=== PATIENT | male | born 1985 | race African-American/Black ===

== ENCOUNTER 2016-08-20 10:22 | Emergency (ER) | payer OTHER ==
--- NOTE | ~2016-08-20 | CR72 ---
[facility] A Service of [facility] & [facility] RADIOLOGY TEXT RESULTS PATIENT: DERREK DUNN LOCATION: [facility] : 87 UNIT #: [id number] AGE: [address]: Salbador Smith MD SEX: M ORDER DR: [id number] [facility] [address] [facility]. [place], [place] [address] [id number] E MR#: [id number] Acc #: [id number] NAME: DERREK DUNN : 1985 SEX: M STUDY DATE/TIME: 08/20/2016 11:26 UNIT: [facility] ROOM: STUDY DESCRIPTION: CR Chest Single View Portable Attending Physician: Salbador Smith M.D. Ordering Physician: Salbador Smith M.D. MEDICAL IMAGING REPORT This report is preliminary unless electronic signature is present EXAM Portable chest HISTORY Cough. Congestion. Shortness of breath today. COMPARISON STUDIES No comparisons. FINDINGS Lungs are well expanded. No acute appearing infiltrate. The heart size is normal. IMPRESSION No active disease. Dictated by... Colt Becerra M.D. THIS IS AN ELECTRONICALLY VERIFIED REPORT Colt Becerra M.D. at 08/21/2016 10:31 AM CLARKE/clayton TD: 08/20/2016 13:29 JOB #: [id number] MEDICAL IMAGING REPORT Page 1 of 1 COPY
--- NOTE | ~2016-08-20 | CT71 ---
[facility] A Service of [facility] RADIOLOGY TEXT RESULTS PATIENT: DERREK DUNN LOCATION: [facility] : 87 UNIT #: [id number] AGE: [address]: Salbador Smith MD SEX: M ORDER DR: [id number] [address] [address] [id number] E MR#: [id number] Acc #: [id number] NAME: DERREK DUNN. : 1985 SEX: M STUDY DATE/TIME: 08/20/2016 13:02 UNIT: [facility] ROOM: STUDY DESCRIPTION: CT Head Wo Contrast Attending Physician: Salbador Smith M.D. Ordering Physician: Salbador Smith M.D. MEDICAL IMAGING REPORT This report is preliminary unless electronic signature is present EXAM CT head without IV contrast COMPARISON None. INDICATIONS 30-year-old male with altered mental status and seizure today. TECHNIQUE This CT exam was performed with one or more of the following radiation dose reduction techniques: automatic exposure control, adjustment of mA and/or kV according to patient size, and iterative reconstruction. FINDINGS Mastoid air cells, middle ears, visualized paranasal sinuses are well-aerated. No acute fractures or suspicious osseous lesions. Normal cerebral volume. No mass effect or abnormal extraaxial fluid collection. No acute intracranial hemorrhage. No evidence of acute ischemia. IMPRESSION No acute abnormality. Dictated by... Kai Bales M.D. THIS IS AN ELECTRONICALLY VERIFIED REPORT Kai Bales M.D. at 08/25/2016 8:39 PM BLM/pcl TD: 08/20/2016 14:51 JOB #: [id number] [facility] A Service [facility] RADIOLOGY TEXT RESULTS PATIENT: DERREK DUNN LOCATION: [facility] : 87 UNIT #: [id number] AGE: [address]: Salbador Smith MD SEX: M ORDER DR: MEDICAL IMAGING REPORT Page 1 of 1 COPY
[~2016-08-20 10:22] MED LIST: PEPCID PO; PHENERGAN25 M1 PO; PRILOSEC20 MG PO; ZOFRAN ODT4 MG PO
[2016-08-20 11:13] LABS: BASOPHIL% 0.3 % (0-2.5); EOSINOPHIL# 0.1 X10e3 (0-0.7); HEMATOCRIT 41.3 % (38.0-50.0); HEMOGLOBIN 13.5 gm/dL (13.0-16.0); LYMPHOCYTE# 2.1 X10e3 (1.0-3.5); LYMPHOCYTE% 20.8 % (17.0-45.0); MEAN CELL VOLUME 90.5 FL (83-96); MEAN CORPUSCULAR HEMOGLOBIN 29.5 PG (28-34); MEAN CORPUSCULAR HGB CONC 32.6 g/dL (30-36); MEAN PLATELET VOLUME 8.1 FL (6.5-11.5); MONOCYTE# 0.7 X10e3 (0-1.0); NEUTROPHIL# 7.2 X10e3 (1.5-7.1); NEUTROPHIL% 70.9 % (40-75); PLATELET COUNT 198 X10e3 (140-420); RED BLOOD COUNT 4.56 X10e (3.90-5.60); WHITE BLOOD COUNT 10.2 X10e3 (4.0-10.5)
[2016-08-20 11:14] LABS: DIFF IND NO
[2016-08-20 11:43] LABS: CALCIUM SERUM 8.8 mg/dL (8.4-10.2); GLOM FILT RATE Estimated 118.2 mL/min (>60); POTASSIUM 3.3 mmol/L (3.5-5.1)
== END 2016-08-20 14:05 | disposition home or self-care (01) ==
LOC: CED 10:22
PROVIDERS: Emergency Medicine
DX: G40.909 Epilepsy, unspecified, not intractable, without status epilepticus (principal); F17.210 Nicotine dependence, cigarettes, uncomplicated
CPT/HCPCS: 36415; 70450; 71010; 80048; 82947; 85025; 96360; 99285

== ENCOUNTER 2016-08-25 00:10 | Observation (INO) | payer OTHER ==
--- NOTE | ~2016-08-25 | CO ---
Unit #: [id number] #: [id number] Patient: DERREK DUNN [id number] [facility]. [place], [place] [address] [id number] I MR#: [id number] NAME: DERREK DUNN. ROOM: 567 Age: 30 Sex: M Admission Date: 08/25/2016 : 1985 Attending Physician: Rudy Mir M.D. Consultation Date: 08/25/2016 CONSULTATION REPORT REASON FOR CONSULTATION Chest pain. HISTORY OF PRESENT ILLNESS This is a 30-year-old, male who recently told he had a seizure disorder, occasional marijuana use, nicotine abuse, occasionally drinks wine, who came to the emergency room after he had a seizure-like activity, then complained of some chest pain. According to the patient, last , he came into the emergency room here at [facility]. [facility], he had some type of seizure activity. They sent him home and he was supposed to follow up with Dr. Alhaji Jay with Neurology. He states he did not put him on any type of seizure medication. Yesterday, he was sitting in a chair and there was a friend with him who has witnessed that he had a seizure like activity. He does believe he was postictal, but that is not confirmed. The patient then complained to the staff in the ER that he has been having chest pain. He says he has been having it for almost a week. It is in left anterior chest wall that radiates under the left axilla region. He denies any pain up in his neck, bilateral jaws, shoulders, arms, or elbow. He denies any shortness of breath with chest pain. He has occasional palpitations. He has not had no recent cough, fever, or chills. Next, in the emergency room, the patient's blood pressure was 122/83, heart rate 91, respirations 18, temperature 98.7. His initial labs, his cardiac enzymes; troponin less than 0.05 and troponin 0.09 and later less than 0.03. CK was 8009. His D-dimer was 471. He did test positive for amphetamines and marijuana on his urine tox screen. His EKG shows sinus rhythm with left ventricular hypertrophy, short FL, no ischemia. Cardiology has been asked to assist with evaluation and management along with Neurology. PAST MEDICAL HISTORY 1. Seizure disorder recently, but not on medications. 2. Marijuana use. 3. Nicotine abuse. 4. History of spinal meningitis back in 2009. 5. Occasionally drinks wine. 6. Nicotine abuse. 7. No stress or cardiac cath in the past. PAST SURGICAL HISTORY None. HOME MEDICATIONS None. Unit #: [id number] #: [id number] Patient: DERREK DUNN ALLERGIES No known drug allergies. SOCIAL HISTORY The patient lives with his friend. He smokes about less than half a pack of cigarettes a day. He has been smoking for a few years. Drinks occasional wine, but says he is not a heavy drinker. He does use marijuana occasionally. He denies any other illicit drug abuse, even though reported to him that he tested positive for amphetamines on his tox screen. FAMILY HISTORY His mother is living, no problems. His father from lung fibrosis. Siblings are in generally well health. REVIEW OF SYSTEMS See details in HPI. PHYSICAL EXAMINATION GENERAL: Mr. Dunn is a 30-year-old male, in no acute respiratory distress. He is awake, alert, and oriented. VITAL SIGNS: Blood pressure 132/77, heart rate 58, respirations 16. He is afebrile. O2 saturations 99% on room air. NECK: Trachea midline. No thyromegaly or lymphadenopathy. Normal carotid upstrokes. No jugular venous distention. HEART: S1, S2. Regular rate and rhythm. No clicks, murmurs, or rubs. LUNGS: Diminished, otherwise clear. ABDOMEN: Soft and nontender. EXTREMITIES: Pedal pulses are palpable. No pedal edema. DIAGNOSTIC STUDIES LABORATORY RESULTS: Glucose is 81, BUN 11, creatinine 0.6, eGFR is 158.6. Sodium 138, potassium 3.9, chloride 105, CO2 of 25, calcium is 9.1, total protein 6.9, albumin 4.1, bilirubin total 1.9, AST 55, ALT 25, alkaline phosphatase is 65. WBCs are 6.6, hemoglobin 12.2, hematocrit 37.8, platelets is 172. Initial cardiac enzymes; CK-MB is 1.6; troponin less than 0.05. Repeat cardiac enzymes; CK total was 9564, MB is 2.4, percentage of MB 0, and troponin 0.09 and latest cardiac enzymes, CK total is 8009 with MB is 2.3, percentage of MB 0.0, and troponin less than 0.03. INR is 1.2, D-dimer 471. Urine tox screen is positive for amphetamines and marijuana. Urinalysis shows 1+ leukocyte esterase, trace of protein, 1.0 urobilinogen, 25 to 50 wbc's. IMAGING STUDIES: Chest x-ray shows nothing abnormal. CT of the head that was done on 08/20/2016 does not show anything acute. EKG shows normal sinus rhythm with short FL interval. Ventricular rate is 91 beats per minute. Left ventricular hypertrophy, left atrial abnormality, peaked T-waves in especially anterior leads. IMPRESSION 1. Seizure-like activity. 2. Chest pain-atypical. 3. Marijuana abuse. Unit #: [id number] #: [id number] Patient: DERREK DUNN 4. Nicotine abuse. 5. Positive amphetamines on urine tox screen. 6. History of spinal meningitis. PLAN 1. Cardiology consult to assist with evaluation and management of chest pain. Cardiac enzymes; troponin so far has been negative. EKG does not show anything acute. On examination, palpating the area of the chest wall is very tender and sore, most likely musculoskeletal in nature. However, he has never had an ischemic heart disease workup. We will do a Lexiscan Cardiolite stress test to further evaluate. We will not have him walk on the treadmill due to reported seizure activity. 2. Obtain a fasting lipid profile and evaluate. 3. Dr. Becerra with neurology will evaluate the patient and the plans are for an MRI and an EEG. Also, he has been started on IV Keppra. 4. On exam, there are no signs or symptoms of acute congestive heart failure. 5. The patient is on daily dose of Lovenox, Protonix and aspirin. 6. Further recommendations pending per Dr. Trejo. Thank you very much for allowing us to assist in the care. Dictated by... Julio Cesar Grubbs/bibil TD: 08/26/2016 05:25 JOB #: [id number] CC: Oziel Carvalho M.D. CONSULTATION REPORT Page 1 of 1 X Isabel Rome APRN CONSULTATION REPORT
--- NOTE | ~2016-08-25 | CR72 ---
[facility] A Service of [facility] & [facility] RADIOLOGY TEXT RESULTS PATIENT: DERREK DUNN LOCATION: [facility] : 87 UNIT #: [id number] AGE: [address]: Rudy Mir MD SEX: M ORDER DR: [id number] [facility] [address] [facility]. [place], [place] [address] [id number] I MR#: [id number] Acc #: [id number] NAME: DERREK DUNN. : 1985 SEX: M STUDY DATE/TIME: 08/25/2016 00:56 UNIT: CEDOF ROOM: 75203 STUDY DESCRIPTION: CR Chest Single View Portable Attending Physician: Rudy Mir M.D. Ordering Physician: Ed Doctor [id number] [facility] Primary Care Physician: Primary Care Physician No MEDICAL IMAGING REPORT This report is preliminary unless electronic signature is present EXAM Portable chest, 08/25/2016 at 0056 hours INDICATION Left side chest pain today. COMPARISON 08/20/2016 FINDINGS A single AP portable view of the chest shows both lungs to be clear. The heart is normal in size. The mediastinal contour is normal. No significant bone abnormalities are seen. IMPRESSION Normal portable chest. Dictated by... Constantine Morgan Jr., M.D. THIS IS AN ELECTRONICALLY VERIFIED REPORT Constantine Morgan Jr., M.D. at 08/25/2016 9:26 PM VANI/janak TD: 08/25/2016 02:41 JOB #: [id number] MEDICAL IMAGING REPORT Page 1 of 1 COPY
--- NOTE | ~2016-08-25 | EKG ---
PATIENT: DERREK DUNN UNIT #: [id number] Ventricular Rate: 58 BPM Atrial Rate: 58 BPM P-R Interval: 114 ms QRS Duration: 98 ms Q-T Interval: 438 ms QTC Calculation(Bezet): 429 ms Calculated R [place]: 57 degrees Calculated T [place]: 42 degrees Diagnosis Line: Sinus bradycardia Diagnosis Line: Otherwise normal ECG Diagnosis Line: When compared with ECG of 25-AUG-2016 00:15, Diagnosis Line: Vent. rate has decreased BY 33 BPM Diagnosis Line: Confirmed by MARISSA DWYER MD ([id number]) on Diagnosis Line: 08/27/2016 2:59:53 PM INTERPRETING MD: SASCHA
--- NOTE | ~2016-08-25 | EKG ---
PATIENT: DERREK DUNN UNIT #: [id number] Ventricular Rate: 91 BPM Atrial Rate: 91 BPM P-R Interval: 108 ms QRS Duration: 94 ms Q-T Interval: 362 ms QTC Calculation(Bezet): 445 ms P [place]: 75 degrees Calculated R [place]: 66 degrees Calculated T [place]: 56 degrees Diagnosis Line: Sinus rhythm with short IA Diagnosis Line: Otherwise normal ECG Diagnosis Line: No previous ECGs available Diagnosis Line: Confirmed by MARISSA DWYER MD ([id number]) on Diagnosis Line: 08/26/2016 6:38:18 AM INTERPRETING MD: SASCHA
--- NOTE | ~2016-08-25 | MR17 ---
[facility] A Service of [facility] RADIOLOGY TEXT RESULTS PATIENT: DERREK DUNN LOCATION: [facility] 56[facility] : 87 UNIT #: [id number] AGE: [address]: Rudy Mir MD SEX: M ORDER DR: [id number] [facility] [address] [facility]. [place], [place] [address] [id number] MR#: [id number] Acc #: [id number] NAME: DERREK DUNN : 1985 SEX: M STUDY DATE/TIME: 08/25/2016 15:15 UNIT: CEDOF ROOM: 62478 STUDY DESCRIPTION: MR Brain WWo Contrast Attending Physician: Rudy Mir M.D. Ordering Physician: Judah Becerra M.D. Primary Care Physician: No Primary Care Physician MRI CENTER REPORT This report is preliminary unless electronic signature is present. EXAM Brain MRI with and without contrast HISTORY Seizures with tachycardia onset earlier this morning. TECHNIQUE Multiplanar imaging of the brain was performed with and without contrast. 17 mL of MultiHance was used. FINDINGS The diffusion weighted images are normal with no evidence of abnormal restricted diffusion. The routine brain images show no evidence of mass lesion, hemorrhage or edema. Mild increased FLAIR signal is seen adjacent to the atria of the lateral ventricles on both sides. This is a nonspecific finding. In this age group consider demyelinating disease, chronic deep white matter ischemic change or sequela of previous infection, inflammation or trauma. This does not enhance with contrast. The temporal lobes are symmetric. There is no evidence of heterotopic duron matter. After contrast administration no abnormal enhancement is seen. Extraaxial structures are unremarkable. IMPRESSION 1. Mild nonspecific periventricular white matter disease seen on the FLAIR-weighted images bilaterally. It is abnormal in this age group. See above differential diagnosis. 2. Otherwise negative brain MRI. STAT * RESULT Dictated by... [facility] A Service of [facility] RADIOLOGY TEXT RESULTS PATIENT: DERREK DUNN LOCATION: [facility] 567-01 : 87 UNIT #: [id number] AGE: [address]: Rudy Mir MD SEX: M ORDER DR: Constantine Klein M.D. THIS IS AN ELECTRONICALLY VERIFIED REPORT Constantine Klein M.D. at 08/25/2016 6:52 PM ARINA/sina TD: 08/25/2016 16:20 JOB #: [id number] MRI CENTER REPORT Page 1 of 1 COPY
--- NOTE | ~2016-08-25 | ST ---
Unit #: [id number] #: [id number] Patient: DERREK DUNN [id number] [address] [id number] I MR#: [id number] NAME: DERREK DUNN. : 1985 SEX: M STUDY DATE/TIME: 08/25/2016 UNIT: C[facility]OF ROOM: 46082 STUDY DESCRIPTION: Attending Physician: Rudy Mir M.D. Primary Care Physician: No Primary Care Physician CARDIOLOGY REPORT EXAM Lexiscan Cardiolite stress test. FINDINGS Baseline EKG: Sinus bradycardia, heart rate 52 beats per minute, left ventricular hypertrophy, mild left atrial abnormality, short VA interval, elevated T-waves. PROCEDURE Lexiscan is a 4-minute test with Lexiscan being injected within the first minute followed by Cardiolite. EKG during the test was equivocal to baseline. No acute ischemic changes. Patient had occasional premature atrial contraction. Maximum heart rate response was 110 beats per minute with a maximum blood pressure response of 134/83 mmHg. Patient had no complaints of chest pain, palpitations, or dizziness. Had increased shortness of breath and fatigueness which resolved in recovery phase. Cardiolite was injected after Lexiscan within the first minute of the test. Radionuclide tests pending. Please correlate with nuclear images. Dictated by... Julio Cesar Grubbs M.D. CEC/kavon TD: 08/25/2016 15:42 JOB #: [id number] CARDIOLOGY REPORT Page 1 of 1 X Isabel Rome APRN CARDIOLOGY REPORT
--- NOTE | ~2016-08-25 | CO ---
Unit #: [id number] #: [id number] Patient: DERREK DUNN [id number] [facility] [address] [facility]. [place], [place] [address] [id number] I MR#: [id number] NAME: DERREK DUNN. ROOM: 567 Age: 30 Sex: M Admission Date: 08/25/2016 : 1985 Attending Physician: Rudy Mir M.D. Consultation Date: 08/25/2016 CONSULTATION REPORT PRIMARY CARE PHYSICIAN Oziel Carvalho M.D. REASON FOR CONSULTATION Heart racing, small seizures, chest pain. PATIENT IDENTIFICATION This is a 30-year-old right-handed Afro [place] male, who was evaluated in ERT5 at [facility]. SOURCE OF INFORMATION The medical records and my discussion with the ER staff. PROBLEM LIST 1. He was admitted for confusional episode, "small seizures," racing heart over the last several days. 2. Otherwise, he denies any problems. HISTORY OF PRESENT ILLNESS This gentleman was brought in close to the midnight and the reason he was brought in is that apparently he was confused. There was concern about episodic confusion and he says that he has had small seizures for almost 7 to 9 years and he is supposed to see Dr. Jay. He says Dr. Mane and who is Dr. Jay and he says yes. He states he has never been treated. So far from what I could gather, he had a normal CT. His CPK was elevated at 9564. AST was 55. His H and H of 12.2 and 37.8, platelet count was 172. Urine drug screen was positive for amphetamines and marijuana, but he acknowledges smoking, but denies any kind of drugs whatsoever. He acknowledges about one fifth packet of tobacco and does acknowledge some alcohol use. He has not had a seizure of any kind since being here. He denies taking any antiepileptics now or in the past and there is no corroboration of what kind of spells he has. He is mildly confused about the exact date. Otherwise, he is appropriate. PAST MEDICAL HISTORY As discussed above. There is question about "spinal meningitis." PAST SURGICAL HISTORY None. ALLERGIES None known to us. Unit #: [id number] #: [id number] Patient: DERREK DUNN MEDICATIONS None. FAMILY HISTORY No history of epilepsy. SOCIAL HISTORY Apparently, he is a smoker and does drink. He is not working. He got . REVIEW OF SYSTEMS GENERAL: He denies any weight issues, fever, chills, rigor, or sweats. HEENT: No headaches. No double vision, earache, runny nose, or sore throat. CARDIOVASCULAR: No chest pain, clubbing, cyanosis, orthopnea, or palpitation now, but he came with palpitations and chest pain. Cardiology is seeing him. NECK: No neck pain. No neck stiffness. PULMONARY: No shortness of air, cough, or expectoration. ABDOMEN: No nausea, vomiting, diarrhea, or constipation. GENITOURINARY: No genitourinary symptoms. EXTREMITIES: No extremity problems. BACK: No back problems. PSYCHIATRIC: No psychiatric issue. NEUROLOGIC: No neurologic issue. No other hematologic, dermatologic, or endocrine issues. PHYSICAL EXAMINATION VITAL SIGNS: Temperature 97.8, pulse 58, respirations 16, blood pressure 113/59, O2 saturations were 97% to 100%, weight of 179 pounds. BMI was 24. NEUROLOGIC: The patient is awake. Mildly lethargic, but appropriate except for saying this is 18th and when I have to question him and told him it could be further and said it could be 22nd. He agreed he knows this is , 07/2016. He is at [facility]. Cranial nerve examination demonstrates full moore of vision to confrontation. Eye movements are conjugate. Pupils are sluggishly reactive size about 3 mm. No ptosis. No nystagmus. Sensation on the face and scalp are normal. Strength of muscles of facial expression normal. Hearing seemed to be intact. Tongue was midline. I could not visualize uvula or oropharynx. Head turning was spontaneous. No neck stiffness was seen. Motor examination demonstrated normal bulk, tone. Strength was essentially 5-/5 all over. Sensory examination intact for soft touch and pain sensation. No extinction was seen. Romberg was not evaluated. Gait exam was deferred. I could not get any reflexes. Toes are equivocal. DIAGNOSTIC STUDIES LABORATORY RESULTS: Reviewed. IMAGING STUDIES: Reviewed. Unit #: [id number] #: [id number] Patient: DERREK DUNN IMPRESSION Episode of confusion. Labs reviewed. CT reviewed. Question about seizure, question about seizures in the past. He denies any drug use, but also he denies taking any prescription or having cold medications or anything, so it is very strange. Nonetheless, he is reportedly supposed to see Dr. Jay. I will get an MRI of the brain on him. I will put him on Keppra until he sees Dr. Jay. He is not in status and very questionable what he has, so he can see Dr. Jay, our neurologist of choice. Otherwise, if he is on seizures and loss of awareness, then loss of consciousness precautions apply. Otherwise, I will observe him and he can be discharged and Dr. Jay can follow up on the MRI and EEG for that matter. Call if any other questions, issues, or concerns. Dictated by... Judah Becerra M.D. LINWOOD/lyle TD: 08/26/2016 06:15 JOB #: [id number] CONSULTATION REPORT Page 1 of 1 X Judah Becerra MD CONSULTATION REPORT
--- NOTE | ~2016-08-25 | EE ---
Unit #: [id number] #: [id number] Patient: DERREK DUNN [id number] [address] [id number] I MR#: [id number] NAME: DERREK DUNN. : 1985 SEX: M STUDY DATE/TIME: 08/25/2016 UNIT: [facility] ROOM: 567 STUDY DESCRIPTION: EEG Attending Physician: Rudy Mri M.D. Referring Physician: Rudy Mir M.D. Primary Care Physician: No Primary Care Physician NEURODIAGNOSTICS REPORT EXAM EEG REASON FOR STUDY Seizure. EEG DESCRIPTION This is an inpatient, digitally recorded, multi-montage adult EEG with leads placed according to the International 10-20 system. Hyperventilation and photic stimulation was attempted. With the patient fully aroused there is 10 to 11 Hz posterior background. The patient did become drowsy and later on stage 2 sleep was seen. Hyperventilation was attempted. There was one set of transients and that was in the drowsy state but otherwise I did not see anything suggesting clearcut interictal discharges or clinical events. Next, photic stimulation was attempted in an intermittent stepwise pattern up to a flash frequency of 30 Hz but I did not see any driving, asymmetry or paroxysmal activity and no clinical events were seen. IMPRESSION This is likely a normal adult awake and asleep EEG. An EEG like this does not rule out epilepsy. Clinical correlation is recommended. Dictated by... Christopher Lion/adriana TD: 09/06/2016 21:11 JOB #: [id number] Unit #: [id number] #: [id number] Patient: DERREK DUNN NEURODIAGNOSTICS REPORT Page 1 of 1 X Judah Becerra MD NEURODIAGNOSTICS REPORT
--- NOTE | ~2016-08-25 | HP ---
Unit #: [id number] #: [id number] Patient: DERREK DUNN [id number] [address] [place], [place] [address] [id number] MR#: [id number] NAME: DERREK DUNN. ROOM: 567 Age: 30 Sex: M Admission Date: 08/25/2016 : 1985 Attending Physician: Rudy Mir M.D. Primary Care Physician: No Primary Care Physician HISTORY AND PHYSICAL ADMISSION DIAGNOSES 1. Questionable seizure disorder. 2. Heart palpitations. HISTORY OF PRESENT ILLNESS Mr. Dunn is a 30-year-old -[place] gentleman, patient of Dr. Carvalho, who apparently was seen by Dr. Alhaji Jay, neurologist, as an outpatient secondary to questionable seizure disorder. The patient tells me that his mother and aunt had witnessed him falling down and having convulsions including biting on his tongue even though I did not see any falcon on his tongue bite but patient tells me that she has been seen by Dr. Carvalho and Dr. Pierre Mane, neurologist, as an outpatient, and yesterday decided to come to the emergency room. He was found tachycardic in the emergency room and tox screen was positive for amphetamine and marijuana. However, the patient denies using meth, admits to marijuana only. He also denies any daily alcohol drinking. He tells me that he had some alcohol which is mainly wine last Monday. The patient, otherwise complains of some left sided chest tenderness, denies any shortness of air, headache, dizziness, syncope, presyncope, nausea, vomiting, diarrhea, fever, chills or cough. Twelve point review of systems on this patient is basically negative except as above. PAST MEDICAL HISTORY None. HOME MEDICATIONS None. ALLERGIES No known drug allergies. PAST SURGICAL HISTORY None. FAMILY HISTORY Unremarkable. SOCIAL HISTORY As above. Smokes tobacco and marijuana. Again, tox screen positive for amphetamines. She denies any other illicit drugs except for marijuana. Drinks occasionally. FAMILY HISTORY Unremarkable. Unit #: [id number] #: [id number] Patient: DERREK DUNN PHYSICAL EXAMINATION GENERAL: The patient is a 30-year-old gentleman in no acute distress. VITAL SIGNS: Blood pressure 124/76, heart rate 56, respirations 20, temperature 99.6. HEENT: Head is atraumatic. Pupils equal, round, reactive to light and accommodation. Extraocular muscles intact. Oropharynx clean. NECK: Supple. No masses, no JVD, no bruits. CHEST: Clear to auscultation bilaterally. CARDIOVASCULAR: S1, S2. No murmurs. ABDOMEN: Soft, nontender, nondistended. EXTREMITIES: Lower extremities without any cyanosis, clubbing or edema. NEUROLOGIC: The patient is grossly intact. No focal deficits. DIAGNOSTIC STUDIES IMAGING: Chest x-ray unremarkable. MRI of the brain was ordered by neurology and shows mild nonspecific periventricular white matter disease. Abnormal in this age group. LABORATORY: Chemistry unremarkable except for indirect bili of 1.5, AST 55, CK total 8000, down from 9500. Initial troponin 0.09, subsequent troponin at less than 0.03. Coagulation panel shows PT of 12.5. Third set of cardiac enzymes negative at 0.05. CBC unremarkable. Tox screen as above. UA significant for leukocyte esterase 1.0 and WBC 25-50. Urine culture currently pending. ASSESSMENT AND PLAN 1. Questionable seizure disorder with abnormal MRI, status post neurology evaluation: Continue per neurology. Follow up on their recommendations. 2. Elevated troponin with tachycardia, status post cardiology evaluation. Cardiology cleared to be discharged. 3. Polysubstance abuse including marijuana and amphetamine: Continue to student counsellor him of importance of quitting drug habits. 4. Tobacco use. 5. Elevated CK, questionable rhabdo: Monitor chemistry. Continue IV fluids. 6. Continue GI and DVT prophylaxis with PPI and Lovenox. Dictated by Rudy Mir M.D. OC/df Unit #: [id number] #: [id number] Patient: DERREK DUNN TD: 08/26/2016 07:06 JOB #: [id number] HISTORY AND PHYSICAL Page 1 of 1 X Rudy Mir MD HISTORY AND PHYSICAL
--- NOTE | ~2016-08-25 | TH ---
Unit #: [id number] #: [id number] Patient: DERREK DUNN [id number] [address] [address] [id number] I MR#: [id number] NAME: DERREK DUNN. : 1985 SEX: M STUDY DATE/TIME: UNIT: [facility] ROOM: 567 STUDY DESCRIPTION: Nuclear Study Attending Physician: Rudy Mir M.D. Primary Care Physician: No Primary Care Physician CARDIOLOGY REPORT EXAM Lexiscan Cardiolite Stress Test - Nuclear Portion DESCRIPTION Using technetium 99m labeled Cardiolite, rest and stress SPECT images were obtained. Multiple SPECT images were obtained in various views including horizontal and vertical long axis and short axis views of the left ventricle. Images were obtained by gated SPECT method. The patient was administered 10.2 mCi of Cardiolite at rest. The patient was administered 28.1 mCi of Cardiolite after Lexiscan infusion was completed. On the stress images, there is normal perfusion noted. The rest images show normal perfusion. Comparing rest and stress images, there is no stress-induced ischemia noted. The left ventricular ejection fraction is calculated to be 64%. There is no focal wall motion abnormality seen. CONCLUSION 1. No stress-induced ischemia noted. 2. The left ventricular ejection fraction is calculated to be 64%. 3. There is no focal wall motion abnormality seen. 4. Normal Lexiscan Cardiolite stress test. Dictated by... Christopher Madsen TD: 08/26/2016 05:51 JOB #: [id number] Unit #: [id number] #: [id number] Patient: DERREK DUNN CARDIOLOGY REPORT Page 1 of 1 X Nydia Trejo MD <ELECTRONICALLY SIGNED> 09/24/16 1429 CARDIOLOGY REPORT
--- NOTE | ~2016-08-25 | DS ---
Unit #: [id number] #: [id number] Patient: DERREK DUNN [id number] [address] [address] [id number] I MR#: [id number] NAME: DERREK DUNN. ROOM: 567 Age: 30 Sex: M Admission Date: 08/25/2016 : 1985 Discharge Date: 08/26/2016 Attending Physician: Rudy Mir M.D. Primary Care Physician: No Primary Care Physician DISCHARGE SUMMARY DISCHARGE DIAGNOSES 1. Questionable seizure status post neurology evaluation. Unremarkable magnetic resonance imaging. Patient was started on Keppra and is stable from neurology standpoint to be discharged. No more seizure activity in the hospital. 2. Elevated troponin status post unremarkable stress test per cardiology status post cardiology evaluation. Stable to be discharged per cardiology. 3. Elevated total creatine kinase, questionable rhabdomyolysis. The patient was treated with IV fluids. Creatine kinase is consistently trending down. The initial one was 9,500; today is 2,900. 4. Polysubstance abuse with marijuana and amphetamine positive on tox screen. Patient was counselled on the importance of quitting substance abuse. CONSULTS ON THIS HOSPITAL STAY 1. Neurology, Dr. Becerra. 2. Cardiology, Dr. Trejo. DIAGNOSTIC STUDIES IMAGING: Chest x-ray normal. MRI of the brain - Mild nonspecific periventricular white matter disease on the FLAIR-weighted images bilaterally; otherwise, negative MRI. CARDIOVASCULAR: Cardiac stress test - Lexiscan Cardiolite showed no ischemia, EF 69%. Okay from cardiology to be discharged. HISTORY OF PRESENT HOSPITAL STAY AND ACTIVE PROBLEMS Questionable seizure disorder status post neurology evaluation. MRI as above. Started on Keppra. Stable from my neurology standpoint. Outpatient followup with neurology. Elevated troponin status post negative Cardiolite stress test. Status post cardiology evaluation, stable to be discharged. Elevated CK, questionable rhabdomyolysis. Was treated with IV fluids. CK total consistently trending down. Stable to be discharged. Counselled to stay well hydrated. Outpatient followup with primary care physician in 2-3 days. Polysubstance abuse. Counselled on the importance of quitting drug habits. DISCHARGE MEDICATIONS Unit #: [id number] #: [id number] Patient: DERREK DUNN Keppra 500 mg p.o. b.i.d. (Prescription is in the chart and provided to the patient.) FOLLOW-UP 1. Outpatient followup with primary care physician in 2-3 days. 2. Outpatient followup with neurology. Dictated by..Christopher Malloy/jude TD: 08/27/2016 08:13 JOB #: [id number] DISCHARGE SUMMARY Page 1 of 1 X Rudy Mir MD X DISCHARGE SUMMARY
[2016-08-25 02:51] LABS: BASOPHIL% 0.5 % (0-2.5); EOSINOPHIL# 0.2 X10e3 (0-0.7); EOSINOPHIL% 2.4 % (0.0-7.0); HEMATOCRIT 39.9 % (38.0-50.0); LYMPHOCYTE# 2.7 X10e3 (1.0-3.5); LYMPHOCYTE% 36.4 % (17.0-45.0); MEAN CELL VOLUME 91.3 FL (83-96); MEAN CORPUSCULAR HEMOGLOBIN 29.7 PG (28-34); MEAN CORPUSCULAR HGB CONC 32.5 g/dL (30-36); MONOCYTE# 0.7 X10e3 (0-1.0); MONOCYTE% 9.3 % (3.0-12.0); NEUTROPHIL# 3.9 X10e3 (1.5-7.1); NEUTROPHIL% 51.4 % (40-75); PLATELET COUNT 165 X10e3 (140-420); RED BLOOD COUNT 4.37 X10e (3.90-5.60); WHITE BLOOD COUNT 7.5 X10e3 (4.0-10.5)
[2016-08-25 02:53] LABS: DIFF IND NO
[2016-08-25 03:02] LABS: INR 1.2; PARTIAL THROMBOPLASTIN TIME 27.1 SECONDS (23.5-31.3); PROTHROMBIN TIME (PATIENT) 12.5 SECONDS (10.0-11.7)
[2016-08-25 03:19] LABS: ALBUMIN SERUM 4.7 g/dL (3.5-5.0); BILIRUBIN, DIRECT 0.2 mg/dL (0.0-0.2); BILIRUBIN,INDIRECT 1.5 mg/dL (0.0-0.9); BILIRUBIN,TOTAL 1.7 mg/dL (0.2-2.0); CALCIUM SERUM 9.2 mg/dL (8.4-10.2); CREATININE SERUM 0.8 mg/dL (0.6-1.4); POTASSIUM 3.7 mmol/L (3.5-5.1); PROTEIN TOTAL SERUM 7.8 g/dL (6.0-8.3)
[2016-08-25 03:26] LABS: URINE SOURCE CLEAN CATCH
[2016-08-25 03:32] LABS: URINE APPEARANCE CLEAR; URINE BILIRUBIN NEG (NEG); URINE BLOOD NEG (NEG); URINE COLOR YELLOW; URINE GLUCOSE NEG (NEG); URINE KETONE 3+ (NEG); URINE LEUKOCYTE ESTERASE 1+ (NEG); URINE NITRATE NEG (NEG); URINE PROTEIN TRACE (NEG); URINE SPECIFIC GRAVITY 1.027 (1.003-1.035)
[2016-08-25 03:34] LABS: CULTURE INDICATED? YES; URBCS1 AUWI 0-2 /[HPF] (0-2); URINE BACTERIA AUWI NEG (NEGATIVE); URINE SQUAMOUS EPITHELIAL CELL OCC /[HPF]; UWBCS1 AUWI 25-50 (0-5)
[2016-08-25 03:42] LABS: AMPHETAMINE POS (NEG); BARBITURATES NEG (NEG); BENZODIAZEPINES NEG (NEG); COCAINE NEG (NEG); MARIJUANA POS (NEG); OPIATES NEG (NEG); TRICYCLIC ANTIDEPRESSANTS NEG (NEG); U METHADONE NEG (NEG)
[2016-08-25 04:23] LABS: POC - CKMB 1.6 ng/mL (0.0-7.9); POC - TROPONIN <0.05 ng/mL (<=0.05)
[2016-08-25 05:40] LABS: MB 2.4 ng/ml
[2016-08-25 05:41] LABS: MB 2.3 ng/ml
[2016-08-25 07:41] LABS: BASOPHIL% 0.6 % (0-2.5); EOSINOPHIL# 0.3 X10e3 (0-0.7); HEMATOCRIT 37.8 % (38.0-50.0); HEMOGLOBIN 12.2 gm/dL (13.0-16.0); LYMPHOCYTE# 2.8 X10e3 (1.0-3.5); LYMPHOCYTE% 43.3 % (17.0-45.0); MEAN CELL VOLUME 91.1 FL (83-96); MEAN CORPUSCULAR HEMOGLOBIN 29.5 PG (28-34); MEAN CORPUSCULAR HGB CONC 32.4 g/dL (30-36); MEAN PLATELET VOLUME 8.1 FL (6.5-11.5); MONOCYTE# 0.5 X10e3 (0-1.0); MONOCYTE% 8.2 % (3.0-12.0); NEUTROPHIL# 2.9 X10e3 (1.5-7.1); NEUTROPHIL% 43.9 % (40-75); PLATELET COUNT 172 X10e3 (140-420); RED BLOOD COUNT 4.15 X10e (3.90-5.60); RED CELL DISTRIBUTION WIDTH 13.7 % (11.0-15.5); WHITE BLOOD COUNT 6.6 X10e3 (4.0-10.5)
[2016-08-25 07:42] LABS: DIFF IND NO
[2016-08-25 08:27] LABS: ALBUMIN SERUM 4.1 g/dL (3.5-5.0); BILIRUBIN,TOTAL 1.9 mg/dL (0.2-2.0); BUN/CREATININE RATIO 18.33; CALCIUM SERUM 9.1 mg/dL (8.4-10.2); CREATININE SERUM 0.6 mg/dL (0.6-1.4); GLOM FILT RATE Estimated 158.6 mL/min (>60); POTASSIUM 3.9 mmol/L (3.5-5.1); PROTEIN TOTAL SERUM 6.9 g/dL (6.0-8.3)
[2016-08-25] MEDS ORDERED: NO MEDICATIONS (09:04)
[2016-08-26] MEDS ORDERED: KEPPRA500 M2 PO (19:37)
== END 2016-08-26 23:30 | disposition home or self-care (01) ==
LOC: CED 00:10 → C5C 05:33 → CEDOF 05:33 → CED 05:46 → CEDOF 05:46 → C5C 18:04
PROVIDERS: Emergency Medicine; Hospitalist
DX: R56.9 Unspecified convulsions (principal); R07.89 Other chest pain; F12.10 Cannabis abuse, uncomplicated; F15.10 Other stimulant abuse, uncomplicated; R00.0 Tachycardia, unspecified; R74.8 Abnormal levels of other serum enzymes; R79.89 Other specified abnormal findings of blood chemistry; F17.210 Nicotine dependence, cigarettes, uncomplicated
CPT/HCPCS: 36415; 70553; 71010; 78452; 80048; 80053; 80061; 80076; 80307; 81003; 82550; 82553; 84484; 85025; 85379; 85610; 85730; 87086; 93005; 93017; 95816; 96372; 99285; A9500; A9577; G0378; J1650; J1953; J2785